=== PATIENT | male | born 1965 | race Caucasian/White ===

== ENCOUNTER 2020-08-19 10:33 | Inpatient (IN) | payer OTHER ==
[~2020-08-19] VITALS: Ht 177.8 cm; Wt 103.5 kg
[2020-08-19] VITALS (39 sets, daily range): BP systolic 75–232; BP diastolic 49–151
--- NOTE | ~2020-08-19 | CON ---
[address] [address] CONSULTATION Name: BENSONALFRED O Room: [address] IN M.R.#: [id number] Admission: 08/19/20 Attend Phys: Henrik Flores Discharge: Date of : 65 Report #: [id number] THIS REPORT FOR: cc: DEEPA - No family physician/PCP FAM - No family physician/PCP ~ Kiki Rios MD DATE OF SERVICE: 08/24/2020 NEPHROLOGY CONSULTATION CONSULTING PHYSICIAN: Dr. Mcguire. REASON FOR NEPHROLOGY CONSULTATION: Acute kidney injury. REASON FOR ADMISSION: Cardiorespiratory arrest. HISTORY OF PRESENT ILLNESS: This is a 55-year-old male with history of hypertension, also history of excessive alcohol use as per the patient's history, was brought in by EMS after cardiac arrest. The patient was brought to the fire station by an acquaintance where he was found to be without a pulse. CPR was not started for 5 minutes. When EMS arrived, the patient was found to be in VFib initially, he was resuscitated successfully after 4 shocks, amiodarone and epinephrine. EKG showed STEMI. 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 His RCA was found to be chronically occluded. His ejection fraction was found to be 25-30% with diastolic dysfunction, he was placed on code ICE protocol, eventually he was extubated. His creatinine was 1.9 when he came in and he states he does not follow with doctors regularly, so he does not know of any kidney problems from the past, though. His creatinine went up to 2.2 on 08/21 that eventually went up to 2.7, he was also hypotensive during that time, but then has started creatinine started coming down and it was 1.9 and then 1.8 and today it is 1.5. His blood pressures have been running slightly towards the higher side. Although he is awake, alert and oriented, he seems to be flushed and seems to be mentally a little off, seems to be a little getting confused at times. Alcohol withdrawal cannot be ruled out. He also states that he takes NSAIDs at home, but could not tell me how much. His blood pressure medications Include lisinopril and hydrochlorothiazide. He also takes potassium at home. He also had elevated AST and ALT, which are improving and they were presumed to be high because of shock liver. His urine output has been great. He had about 1100 mL of urine output in the last 24 hours. He has been eating and drinking well. ALLERGIES: [place] [address] CONSULTATION Name: ALFRED BENSON Room: [address] IN M.R.#: [id number] Admission: 08/19/20 Attend Phys: Henrik Flores Discharge: Date of : 65 Report #: [id number] REVIEW OF SYSTEMS: As mentioned in history of present illness. Detailed review of systems was kind of limited from patient. PAST MEDICAL AND SURGICAL HISTORY: All we know is that he has hypertension, dyslipidemia. HOME MEDICATIONS: Include hydrochlorothiazide, lisinopril, potassium, Coreg. SOCIAL HISTORY: He reports that he drinks a lot of alcohol. He also smokes, could not me how much. Does not use any recreational drugs. He lives at home with his family. PHYSICAL EXAMINATION: VITAL SIGNS: Blood pressure is 176/91, pulse ox is 93%. He is on room air, respiratory rate is 18, pulse is 74, temperature 36.5. GENERAL: The patient is awake and alert and oriented. He seems to be flushed and he is able to answer questions, but he seems to talk about random things and gets confused at times. HEAD AND EYES: Atraumatic and normocephalic. Conjunctivae normal. EARS, NOSE, AND THROAT: Normal ears and nose. Mucous membranes are moist. NECK: There is no JVD. CHEST: Bilaterally clear to auscultation. No crackles or wheezing He does have some bibasilar crackles posteriorly. CARDIOVASCULAR: S1, S2 normal. No murmurs. ABDOMEN: Soft, nondistended, nontender. Bowel sounds are present. EXTREMITIES: Lower extremities, there is no lower extremity edema. NEUROLOGIC: Grossly intact. PSYCHIATRIC: Mood and affect seems to be normal. LABORATORY DATA: Hemoglobin is 13.6, platelet count is 193. Sodium is 143, potassium is 3.5, BUN is 22, creatinine is 1.5 which is down from 1.8 and other labs were reviewed. Imaging studies including renal ultrasound were reviewed. ASSESSMENT: 1. Acute kidney injury, the patient could be possibly having chronic kidney disease because of hypertension as well we do not have a baseline creatinine on him, but he did have ischemic acute tubular necrosis in the setting of cardiac arrest, also contrast-induced nephropathy, creatinine was 1.9 on admission, went up to 2.7, but now has improved to 1.5. He is nonoliguric. Renal ultrasound showed left kidney was smaller than right kidney, indicating he could be having some vascular disease. UA only showed trace protein and no blood. 2. Hypertension, also has a history of significant alcohol use, alcohol [address] [place] [address] CONSULTATION Name: ALFRED BENSON Room: [address] IN [facility]#: [id number] Admission: 08/19/20 Attend Phys: Henrik Flores Discharge: Date of : 65 Report #: [id number] withdrawal needs to be ruled out. We will defer to Internal Medicine. 3. The patient presented with cardiorespiratory arrest, status post code ICE protocol, status post 4 stents, 2 to LAD and 2 to circumflex, drug-eluting stents. He is on dual antiplatelet therapy and Cardiology is following. 4. Ischemic cardiomyopathy, ejection fraction of 25-30% with diastolic dysfunction. 5. Shock liver. Liver enzymes are improving. 6. Aspiration pneumonia. He is being treated with ceftriaxone as per primary team. 7. Mild confusion, alcohol withdrawal cannot be ruled out. We will defer to primary team. PLAN: 1. I would watch him carefully for alcohol withdrawal. We will defer to primary team in regards to that. 2. We would avoid all NSAIDs. He was taking NSAIDs at home, asked him to not do so. 3. I have started him on lisinopril 10 mg a day to help with his blood pressure, kidney function needs to be monitored tomorrow. 4. Please provide him with an incentive spirometer to prevent atelectasis. 5. Labs in the morning. 6. Also reviewed, he has a right upper extremity DVT. We will defer to primary team for management of that. 7. Try to avoid hypotension and avoid nephrotoxic agents. 7. Lisinopril should be held if systolic blood pressure goal is less than 110 or if he has any nausea, vomiting, or dehydration. Thank you for this consultation. We will follow with you. If kidney function is stable tomorrow, he should be able to go home from renal standpoint although Cardiology is planning for defibrillator. I will have to follow up with me in about 3 weeks after discharge. My information was given to the patient. Discussed with nursing and the patient. By: [id number] Rios MD /nt
--- NOTE | 2020-08-19 10:41 | NUR ---
PT TAKEN TO THE TRIPOLER.
[2020-08-19 10:51] LABS: HEMATOCRIT 51.7 % (42.0-52.0); HEMOGLOBIN 16.9 gm/dL (14.0-18.0); MCH 30.4 pg (26.0-34.0); MCHC 32.8 g/dL (28.0-37.0); MCV 92.8 fL (80.0-100.0); MPV 7.1 fl. (7.2-11.1); NUCLEATED RBCS 0 /100WBC; PLATELET COUNT* 182 thou/uL (150-400); RBC 5.57 mil/uL (4.50-6.00); RDW-CV 13.6 % (10.5-14.5); WBC 8.2 thou/uL (4.0-11.0)
[2020-08-19 11:01] LABS: CALCIUM 8.5 mg/dL (8.5-10.1); CREATININE 1.9 mg/dL (0.6-1.3)
[2020-08-19 11:05] LABS: APTT 32.7 Seconds (25.0-31.3); INR 1.1; PROTIME 11.4 Seconds (9.20-11.50)
[2020-08-19 11:07] LABS: POTASSIUM 2.5 mmol/L (3.5-5.1)
[2020-08-19 11:12] LABS: ALBUMIN 3.2 g/dL (3.4-5.0); MAGNESIUM 2.9 mg/dL (1.8-2.4); TOTAL BILIRUBIN 0.4 mg/dL (<0.1-1.0); TOTAL PROTEIN 6.7 g/dL (6.4-8.2)
[2020-08-19 11:41] LABS: ABSOLUTE BASOPHILS 0.2 thou/uL (0.0-0.2); ABSOLUTE EOSINOPHILS 0.1 thou/uL (0.0-0.7); ABSOLUTE LYMPHOCYTES 5.7 thou/uL (0.8-5.3); ABSOLUTE MONOCYTES 0.6 thou/uL (0.0-1.2); ABSOLUTE NEUTROPHILS 1.6 thou/uL (1.6-8.1); ATYPICAL LYMPHS 11 %; METAMYELOCYTES 1 %
[2020-08-19 11:42] LABS: PLATELET ESTIMATE ADEQUATE
[2020-08-19 13:43] LABS: HEMATOCRIT 52.4 % (42.0-52.0); HEMOGLOBIN 17.8 gm/dL (14.0-18.0); MCH 30.1 pg (26.0-34.0); MCHC 33.9 g/dL (28.0-37.0); MCV 88.8 fL (80.0-100.0); MPV 7.1 fl. (7.2-11.1); NUCLEATED RBCS 0 /100WBC; RDW-CV 13.4 % (10.5-14.5); WBC 21.7 thou/uL (4.0-11.0)
[2020-08-19 13:45] LABS: PLATELET COUNT* 308 thou/uL (150-400)
[2020-08-19 13:51] LABS: CALCIUM 7.7 mg/dL (8.5-10.1); CREATININE 1.9 mg/dL (0.6-1.3)
[2020-08-19 13:53] LABS: POTASSIUM 4.6 mmol/L (3.5-5.1)
[2020-08-19 14:05] LABS: MAGNESIUM 2.3 mg/dL (1.8-2.4); PHOSPHORUS* 5.6 mg/dL (2.5-4.9)
[2020-08-19 14:12] LABS: FIBRINOGEN 209 mg/dL (200-340); PROTIME 37.1 Seconds (9.20-11.50)
[2020-08-19 14:13] LABS: INR 3.8
[2020-08-19 14:16] LABS: ABSOLUTE LYMPHOCYTES 1.1 thou/uL (0.8-5.3); ABSOLUTE MONOCYTES 0.7 thou/uL (0.0-1.2); APTT 120.2 Seconds (25.0-31.3); ATYPICAL LYMPHS 3 %; PLATELET ESTIMATE ADEQUATE
--- NOTE | 2020-08-19 14:56 | NUR ---
RIGHT BASILIC VESSEL ACCESSED FOR 5 MAURITIAN TRIPLE LUMEN PICC. LINE PRE-TRIMMED TO 41CM AND ADVANCED TO THE ZERO MILLY WITH NO RESISTANCE MET. UPPER ARM CIRCUMFERENCE ABOVE INSERTION SITE= 14". SHERLOCK MAGNET AND 3CG CONFIRMATION OF TIP TERMINATION AT THE CAVOATRIAL JUNCTION APPRECIATED. GUIDEWIRE REMOVED, LINE FLUSHED AND INSERTION SITE DRESSED. REPORT GIVEN TO VINCE WANG.
--- NOTE | 2020-08-19 15:04 | EKG ---
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 : 1965 Requested By: Vinh Rosado Order Number: [id number] MD: Chano Coello Measurements Intervals [place] Rate: 86 P: 42 MA: 168 QRS: 4 QRSD: 97 T: -10 QT: 459 QTc: 549 Interpretive Statements Sinus rhythm Borderline low voltage, extremity leads Anteroseptal infarct, old Borderline ST depression, anterolateral leads Prolonged QT interval No previous ECG available for comparison Electronically Signed On 08-19-2020 15:04:41 [employer] by Chano Coello [email or web address] <ELECTRONICALLY SIGNED> By: Chano Coello MD, FAC 08/19/20 1504 1252 1252 Chano Coello MD, [facility] /EPI
[2020-08-19 15:07] LABS: BE -7.1 mmol/L (-2 to +3)
[2020-08-19 15:10] LABS: PCO2 59.9 mmHg (35.0-45.0); pH 7.192 (7.340-7.450)
--- NOTE | 2020-08-19 15:30 | 2DMMODE ---
[place] [address] 2 D/M-MODE ECHOCARDIOGRAM Name: MARCELINOLAFRED O Room: [address] IN [facility]#: [id number] Admission: 08/19/20 Attend Phys: Prabhjot Mcguire Discharge: Date of : 65 Date of Service: 08/19/20 1530 Report #: [id number] THIS REPORT FOR: cc: FAM - No family physician/PCP FAM - No family physician/PCP Chano Coello MD [facility] ~ APPROVED REPORT Study performed: 08/19/2020 14:31:18 EXAM: Comprehensive 2D, Doppler, and color-flow Echocardiogram Patient Location: In-Patient Room #: [facility] Status: routine BSA: 2.21 HR: 108 bpm BP: 143/113 mmHg Rhythm: NSR Other Information Study Quality: Good Indications Acute IL 2D Dimensions IVSd: 11.68 (7-11mm) LVOT Diam: 20.88 (18-24mm) LVDd: 57.08 mm PWd: 9.19 (7-11mm) Ascending Ao: 35.47 (22-36mm) LVDs: 53.60 (25-40mm) Aortic Root: 37.09 mm Volumes Left Atrial Volume (Systole) LA ESV Index: 32.30 mL/m2 Aortic Valve AoV Peak Adiel.: 1.19 m/s AO Peak Gr.: 5.64 mmHg LVOT Max P.04 mmHg AO Mean Gr.: 3.33 mmHg LVOT Mean P.97 mmHg LVOT Max V: 0.71 m/s AO V2 VTI: 16.82 cm LVOT Mean V: 0.45 m/s RICK (VTI): 2.27 cm2 LVOT V1 VTI: 11.17 [place] [address] 2 D/M-MODE ECHOCARDIOGRAM Name: ALFRED BENSON Room: [address] IN [facility]#: [id number] Admission: 08/19/20 Attend Phys: Prabhjot Mcguire Discharge: Date of : 65 Date of Service: 08/19/20 1530 Report #: [id number] Mitral Valve E/A Ratio: 0.82 MV Decel. Time: 210.56 ms MV E Max Adiel.: 0.59 m/s MV PHT: 61.06 ms MVA (PHT): 3.60 cm2 TDI E/Lateral E': 7.38 E/Medial E': 11.80 Medial E' Adiel.: 0.05 m/s Lateral E' Adiel.: 0.08 m/s Pulmonary Valve PV Peak Adiel.: 0.81 m/s PV Peak Gr.: 2.62 mmHg Tricuspid Valve RAP Estimate: 5.00 mmHg TR Peak Gr.: 20.94 mmHg RVSP: 26.00 mmHg PA Pressure: 26.00 mmHg Left Ventricle Left ventricle is at the upper limits of normal. There is global hypokinesis that appears more pronounced in the anteroseptal wall. There is normal left ventricular wall thickness. Left ventricular systolic function is severely decreased. LVEF is 25-30%. Transmitral Doppler flow pattern suggests impaired LV relaxation. Right Ventricle The right ventricle is normal size. The right ventricular systolic function is normal. Atria Left atrium is mildly dilated. The right atrium size is normal. Aortic Valve The aortic valve is normal in structure. Mild aortic regurgitation. There is no aortic valvular stenosis. Mitral Valve The mitral valve is normal in structure. Mild mitral regurgitation. No evidence of mitral valve stenosis. Tricuspid Valve The tricuspid valve is normal in structure. Trace tricuspid regurgitation. [place] [address] 2 D/M-MODE ECHOCARDIOGRAM Name: ALFRED BENSON Room: [address]#: [id number] Admission: 08/19/20 Attend Phys: Prabhjot Mcguire Discharge: Date of : 65 Date of Service: 08/19/20 1530 Report #: [id number] Pulmonic Valve The pulmonary valve is normal in structure. There is no pulmonic valvular regurgitation. Great Vessels The aortic root is normal in size. IVC is normal in size. Pericardium There is no pericardial effusion. <Conclusion> Left ventricle is at the upper limits of normal. There is normal left ventricular wall thickness. Left ventricular systolic function is severely decreased. LVEF is 25-30%. Transmitral Doppler flow pattern suggests impaired LV relaxation. There is global hypokinesis that appears more pronounced in the anteroseptal wall. Mild aortic regurgitation. Mild mitral regurgitation. Trace tricuspid regurgitation. No pulmonary hypertension. Left atrium is mildly dilated. <ELECTRONICALLY SIGNED> By: Chano Coello MD, FACC 08/19/20 1530 153 153 Chano Coello MD, FACC /INF
--- NOTE | 2020-08-19 15:37 | CARD ---
[address] [address] CARDIAC CATH REPORT Name: ALFRED BENSON Mitzy Room: [address] IN [facility]#: [id number] Admission: 08/19/20 Attend Phys: Henrik Flores Discharge: Date of : 65 Report #: [id number] THIS REPORT FOR: cc: FAM - No family physician/PCP FAM - No family physician/PCP ~ Peter Scott MD [facility] APPROVED REPORT Study performed: 08/19/2020 10:52:52 Patient Details Patient Status: ED Room #: The patient is a 55 year-old male Event Personnel Anam Miner RTR Monitor, Kim Vanegas RTR Scrub, Ira Pacheco RN RN, Chano Coello Nurse Transplant, Peter Scott Psychology Tech Procedures Performed Left Heart Cath w/or w/o Coronaries [id number] [facility] [address] w/wo Plasty Single CIRC [id number] [facility] w/wo Plasty Single LAD [id number] Hemostasis w/ Angioseal Indication STEMI , [id number] cardiac arrest Admission/Lab Medications/Medications given during procedure Midazolam (Versed) IV 2 mg, Lidocaine Subcut 20 ml, Heparin IV 5000 units, Potassium Chloride IV 40 mEq, Angiomax IV 14 ml, Angiomax IV 31.83 ml per hr Procedure Narrative The patient was brought emergently to the Cardiac Catheterization Laboratory and was prepped and draped in a sterile manner. The right femoral was infiltrated with 2% Lidocaine subcutaneous anesthesia. A Hamlin 6 FR sheath was inserted into the right femoral artery. Coronary angiography was performed using coronary diagnostic catheters. The right coronary system was accessed and visualized with a Diagnostic JR4 6Fr catheter. The left coronary system was accessed and visualized with a Diagnostic JL4 6Fr catheter. The left ventricle was accessed and visualized with a Diagnostic JR4 6Fr catheter. Left ventricular/Aortic Valve gradient assessed [place] [address] CARDIAC CATH REPORT Name: ALFRED BENSON Room: [address]#: [id number] Admission: 08/19/20 Attend Phys: Henrik Flores Discharge: Date of : 65 Report #: [id number] Closure device was deployed with a 6 Fr Angioseal. The patient tolerated the procedure well and there were no complications associated with the procedure. There was no hematoma. Intraoperative Conscious Sedation Sedation start time: 1053 Case end Time: 1201 Versed 10 mg Fluoro Time: 19.7 minutes Dose: DAP 332624 cGycm2 4332.53 mGy Contrast Type and Amount: Omnipaque 400 ml Diagnostic Cath Left Main 0% narrowing LAD 30% very proximal narrowing with 80% proximalmid LAD stenosis and focal 80% mid LAD narrowing followed by multiple areas of 50 to 70% apical LAD stenosis Circumflex Tandem 90% mid circumflex stenoses with aneurysmal dilatation of 2 segments of the mid circumflex Right Coronary 100% chronic total occlusion proximally with [id number] collaterals filling the distal right coronary well Left Ventriculography Left Ventriculography was not performed. Hemodynamics The aortic pressure is 149/95 mmHg with a mean of 92 mmHg. The left ventricular pressure is 146/16 mmHg with a mean of mmHg. The left ventricular end diastolic pressure is 36 mmHg. There was no gradient across the aortic valve upon pullback. PCI Technique Lesion Anticoagulation was achieved with Angiomax. 14mL Percutaneous coronary intervention was performed on the mid circumflex artery segment. The lesion stenosis prior to intervention was 90% with CALVIN 2 flow. A 6FR XB 3.5 100CM Guide Catheter was used to engage the Left ostium. A [employer] Flex 180cm Interventional Guidewire was used to cross the lesion. BALLOON DILATION A Balloon catheter Trek RX 2.5 X 12 was inserted and inflated up to 12.00atm for 14seconds. Additional Inflation: 14.00atm for 8seconds. Additional Inflation: 14.00atm [place] 10seconds. [place] [address] CARDIAC CATH REPORT Name: ALFRED BENSON Room: [address] IN [facility]#: [id number] Admission: 08/19/20 Attend Phys: Henrik Flores Discharge: Date of : 65 Report #: [id number] STENT DEPLOYMENT A drug-eluting stent Parrott RX Stent 3.0X8mm was inserted and inflated up to 12.00atm for 9seconds. Additional Inflation: 14.00atm for 7seconds. A Drug-Eluting Stent Daniel RX Stent 2.69B3zflzd inserted and inflated up to 20.00 ricardo for 10 seconds. Additional Inflation: 22.00 ricardo for 4 seconds. Final angiography reveals 10 % stenosis with CALVIN 3 flow. PCI Technique Lesion 2 Percutaneous Coronary Intervention was performed on the mid left anterior descending artery segment. The lesion stenosis prior to intervention was 80% with CALVIN 3 flow. A 6FR XB 3.5 100CM Guide Catheter was used to engage the Left ostium. A Prowater Flex 180cm Interventional Guidewire was used to cross the lesion. Balloon Dilation A Balloon catheter Trek RX 2.5 X 8 was inserted and inflated up to 14.00atm for 10seconds. Additional Inflation: 10.00atm for 9seconds. Stent Deployment A drug-eluting stent Daniel RX Stent 2.5X8mm was inserted and inflated up to 12.00atm for 5seconds. Additional Inflation: 15.00atm for 8seconds. Final angiography reveals 0 % stenosis with CALVIN flow. PCI Technique Lesion 3 Percutaneous Coronary Intervention was performed on the proximal left anterior descending artery segment. The lesion stenosis prior to intervention was 80% with CALVIN 3 flow. A 6FR XB 3.5 100CM Guide Catheter was used to engage the Left ostium. A Prowater Flex 180cm Interventional Guidewire was used to cross the lesion. Stent Deployment A drug-eluting stent Daniel RX Stent 2.69U54ua was inserted and inflated up to 14.00atm for 13seconds. Additional Inflation: 14.00atm for 11seconds. Post Stent Deployment Balloon Dilation A Balloon catheter NC Euphora 3.0 x 8 was inserted and inflated up to 18.00atm for 14seconds. Additional Inflation: 24.00atm for 14seconds. [place] [address] CARDIAC CATH REPORT Name: ALFRED BENSON Room: [address] IN [place]#: [id number] Admission: 08/19/20 Attend Phys: Henrik Flores Discharge: Date of : 65 Report #: [id number] Final angiography reveals 10 % stenosis with CALVIN [address] 1[address] Acute ST segment elevation myocardial infarction 2. Severe multivessel coronary artery disease characterized by the following: A 100% chronic total occlusion of the proximal right coronary artery with jnyh-za-qirly collaterals filling the distal right coronary artery B 30% very proximal LAD stenosis followed by 80% proximalmid LAD stenosis with local thrombus at the site followed by 80% mid LAD stenosis with multiple areas of 50 to 70% apical LAD narrowing C tandem 90% stenosis of the midportion of the nondominant circumflex with 2 areas of aneurysmal dilatation in the mid circumflex with CALVIN II flow to the distal vessel 3. Severe elevation of left ventricular end diastolic pressure at rest 4. Successful PCI with deployment of sequential drug-eluting stents at the sites of tandem 90% mid circumflex stenosis with 10% residual narrowings and CALVIN-3 flow to the distal vessel 5. Successful PCI with deployment of sequential drug-eluting stents at the sites of 80% proximalmid LAD stenosis and 80% mid LAD stenosis with 10 and 0% residual narrowings and CALVIN-3 flow to the distal vessel Recommendations Cardiac Risk Reduction Program Medications Administered Angiomax was [place] [address] CARDIAC CATH REPORT Name: ALFRED BENSON Room: [address] IN [facility].#: [id number] Admission: 08/19/20 Attend Phys: Henrik Flores Discharge: Date of : 65 Report #: [id number] Diagnostic Cath Approved by: Chano Coello MD Date/Time: 08/19/2020 15:29:13 <ELECTRONICALLY SIGNED> By: Peter Scott MD, FACC 08/19/20 1536 1536 1536Joandree Scott MD, FACC /INF
[2020-08-19 17:05] LABS: BE -5.6 mmol/L (-2 to +3); PCO2 41.8 mmHg (35.0-45.0); pH 7.307 (7.340-7.450)
[2020-08-19 17:08] LABS: PO2 175.3 mmHg (75.0-100.0)
[2020-08-19] MEDS ORDERED: HYDROCHLOROTHIA25 M1 PO (18:07)
[2020-08-19 19:55] LABS: ABSOLUTE BASOPHILS 0.1 thou/uL (0.0-0.2); ABSOLUTE LYMPHOCYTES 1.5 thou/uL (0.8-5.3); ABSOLUTE MONOCYTES 1.4 thou/uL (0.0-1.2); ABSOLUTE NEUTROPHILS 18.5 thou/uL (1.6-8.1); BASOPHILS 0.3 %; EOSINOPHILS 0.2 %; HEMATOCRIT 51.9 % (42.0-52.0); LYMPHOCYTES 7.1 %; MCH 30.2 pg (26.0-34.0); MCHC 34.7 g/dL (28.0-37.0); MCV 86.8 fL (80.0-100.0); MONOCYTES 6.5 %; MPV 6.8 fl. (7.2-11.1); NUCLEATED RBCS 0 /100WBC; PLATELET COUNT* 297 thou/uL (150-400); POLYS 85.9 %; RBC 5.98 mil/uL (4.50-6.00); RDW-CV 13.7 % (10.5-14.5); WBC 21.5 thou/uL (4.0-11.0)
[2020-08-19 20:08] LABS: PROTIME 21.2 Seconds (9.20-11.50)
[2020-08-19 20:10] LABS: APTT 66.5 Seconds (25.0-31.3); INR 2.1
[2020-08-19 20:25] LABS: CALCIUM 8.7 mg/dL (8.5-10.1); CREATININE 1.9 mg/dL (0.6-1.3); POTASSIUM 3.4 mmol/L (3.5-5.1)
[2020-08-20] VITALS (102 sets, daily range): BP systolic 72–142; BP diastolic 40–87
[2020-08-20 00:21] LABS: ABSOLUTE LYMPHOCYTES 1.2 thou/uL (0.8-5.3); ABSOLUTE NEUTROPHILS 12.8 thou/uL (1.6-8.1); BASOPHILS 0.3 %; EOSINOPHILS 0.2 %; HEMOGLOBIN 16.7 gm/dL (14.0-18.0); LYMPHOCYTES 7.8 %; MCH 29.9 pg (26.0-34.0); MCHC 34.8 g/dL (28.0-37.0); MCV 86.1 fL (80.0-100.0); MONOCYTES 6.8 %; MPV 6.8 fl. (7.2-11.1); NUCLEATED RBCS 0 /100WBC; PLATELET COUNT* 238 thou/uL (150-400); POLYS 84.9 %; RBC 5.58 mil/uL (4.50-6.00); RDW-CV 13.8 % (10.5-14.5); WBC 15.1 thou/uL (4.0-11.0)
[2020-08-20 00:49] LABS: INR 1.1; PROTIME 12.1 Seconds (9.20-11.50)
[2020-08-20 00:50] LABS: CALCIUM 8.9 mg/dL (8.5-10.1); CREATININE 1.8 mg/dL (0.6-1.3); MAGNESIUM 2.6 mg/dL (1.8-2.4); PHOSPHORUS* 2.6 mg/dL (2.5-4.9); POTASSIUM 3.6 mmol/L (3.5-5.1)
[2020-08-20 00:52] LABS: APTT 37.6 Seconds (25.0-31.3)
--- NOTE | 2020-08-20 01:42 | NUR ---
PATIENT'S HEART RATE DECREASED TO MID-LOW 40'S, QT INTERVAL PROLONGED AT 640 MS, BP SOFT WITH MAP >65. PAGED DR. GARBER FOR STATUS UPDATE, NO ADDITIONAL ORDERS RECIEVED.
--- NOTE | 2020-08-20 02:58 | NUR ---
BLOOD PRESSURE FURTHER DECREASED. SYSTOLIC BP IN 70'S WITH MAP IN 50'S. DOPAMINE STARTED, PATIENT RESPONDING WELL TO TREATMENT
[2020-08-20] MEDS ORDERED: AMLODIPINE BESY10 MG PO (05:10)
[2020-08-20] MEDS ORDERED: KLOR-CON 1010 MEQ PO (05:12)
[2020-08-20] MEDS ORDERED: LISINOPRIL20 MG PO (05:14)
[2020-08-20] MEDS ORDERED: COREG PO (05:15)
[2020-08-20 05:22] LABS: BE -4.3 mmol/L (-2 to +3); PCO2 33.1 mmHg (35.0-45.0); PO2 82.4 mmHg (75.0-100.0); pH 7.389 (7.340-7.450)
[2020-08-20 05:36] LABS: ABSOLUTE BASOPHILS 0.1 thou/uL (0.0-0.2); ABSOLUTE LYMPHOCYTES 1.1 thou/uL (0.8-5.3); ABSOLUTE MONOCYTES 0.8 thou/uL (0.0-1.2); ABSOLUTE NEUTROPHILS 11.7 thou/uL (1.6-8.1); BASOPHILS 0.4 %; EOSINOPHILS 0.1 %; HEMATOCRIT 47.2 % (42.0-52.0); HEMOGLOBIN 16.5 gm/dL (14.0-18.0); LYMPHOCYTES 7.8 %; MCH 29.9 pg (26.0-34.0); MCHC 34.9 g/dL (28.0-37.0); MCV 85.8 fL (80.0-100.0); MONOCYTES 5.6 %; MPV 6.9 fl. (7.2-11.1); NUCLEATED RBCS 0 /100WBC; PLATELET COUNT* 232 thou/uL (150-400); POLYS 86.1 %; RDW-CV 13.9 % (10.5-14.5); WBC 13.6 thou/uL (4.0-11.0)
[2020-08-20 05:48] LABS: APTT 29.5 Seconds (25.0-31.3); INR 1.1; PROTIME 11.2 Seconds (9.20-11.50)
[2020-08-20 05:59] LABS: ALKALINE PHOSPHATASE 74 U/L (46-116); ANION GAP 15 mmol/L (7-16); BUN 23 mg/dL (7-18); CALCIUM 8.2 mg/dL (8.5-10.1); CHLORIDE 105 mmol/L (98-107); CHOLESTEROL 222 mg/dL (<200); CO2 22 mmol/L (21-32); CREATININE 1.7 mg/dL (0.6-1.3); GLUCOSE 210 mg/dL (70-99); HDL CHOLESTEROL 37 mg/dL (>40); LDL CHOLESTEROL 117 mg/dL (<100); POTASSIUM 3.5 mmol/L (3.5-5.1); SGOT 168 U/L (15-37); SGPT 208 U/L (30-65); SODIUM 142 mmol/L (136-145); TOTAL BILIRUBIN 0.5 mg/dL (<0.1-1.0); TOTAL PROTEIN 6.1 g/dL (6.4-8.2); TRIGLYCERIDE 344 mg/dL (<150); VLDL 69 mg/dL (<40)
[2020-08-20 06:04] LABS: SERUM ASSESSMENT CLEAR; TROPONIN-I LEVEL 5.11 ng/mL (<0.06)
[2020-08-20 06:05] LABS: MAGNESIUM 2.4 mg/dL (1.8-2.4)
--- NOTE | 2020-08-20 07:49 | NUR ---
ASSESSMENTS CHARTED. PATIENT REMAINED COOLED WITHIN TARGETED TEMPERATURE RANGE THROUGHOUT THE SHIFT. PATIENT SCHEDULED TO BEGIN REWARMING AT 1720 TODAY. PATIENT DOES WAKE UP OVER SEDATION AND BECOMES AGIATED. PROPOFOL NEEDED TO BE INCREASED TO 40 MCG/KG/MIN. SEE TITRATION RECORD FOR DETAILS. DOPAMINE STARTED FOR HR AND BP SUPPORT. CARDENE TURNED OFF AT START OF SHIFT. FAMILY UPDATED MULTIPLE TIMES OVERNIGHT.
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
--- NOTE | 2020-08-20 12:41 | EKG ---
[place] [address] ELECTROCARDIOGRAM REPORT Name: ALFRED BENSON Room: [address] ADM IN M.R.#: [id number] Admission: 08/19/20 Attend Phys: Prabhjot Mcguire Discharge: Date of : 65 Date of Service: 08/20/20 0319 Report #: [id number] THIS REPORT FOR: //name// [facility] Test Date: 2020-08-20 Test Time: 03:19:54 Pat Name: ALFRED BENSON Department: Room: [address] Gender: M Electrical Tester: ITA : 1965 Requested By: Chano Coello Order Number: [id number] Travon MD: Peter Scott Measurements Intervals [place] Rate: 60 P: 14 KS: 120 QRS: 1 QRSD: 92 T: -5 QT: 582 QTc: 582 Interpretive Statements Sinus rhythm Probable left atrial enlargement Probable left ventricular hypertrophy Anterior Q waves, possibly due to LVH Inferior ST-T abnormality; consider ischemia Prolonged QT interval Compared to ECG 08/19/2020 12:52:36 Left ventricular hypertrophy now present Q waves now present T-wave abnormalities persist QT interval has prolonged Electronically Signed On 08-20-2020 12:41:45 CHARTER COORDINATOR by Peter Scott [email or web address] <ELECTRONICALLY SIGNED> By: Peter Scott MD, [facility] 08/20/20 1241 8 8 Peter Scott MD, [facility] /EPI
[2020-08-20 15:39] LABS: HEMATOCRIT 44.3 % (42.0-52.0); HEMOGLOBIN 15.9 gm/dL (14.0-18.0); MCH 30.8 pg (26.0-34.0); MCHC 35.8 g/dL (28.0-37.0); MCV 86.1 fL (80.0-100.0); MPV 7.2 fl. (7.2-11.1); RBC 5.14 mil/uL (4.50-6.00); RDW-CV 13.7 % (10.5-14.5); WBC 12.7 thou/uL (4.0-11.0)
[2020-08-20 16:13] LABS: CALCIUM 7.2 mg/dL (8.5-10.1); MAGNESIUM 2.2 mg/dL (1.8-2.4); PHOSPHORUS* 1.7 mg/dL (2.5-4.9)
[2020-08-20 16:17] LABS: CALCIUM 7.9 mg/dL (8.5-10.1); CREATININE 1.6 mg/dL (0.6-1.3)
[2020-08-20 18:41] LABS: FIBRINOGEN 139 mg/dL (200-340); INR 1.5; PROTIME 15.3 Seconds (9.20-11.50)
--- NOTE | 2020-08-20 18:50 | NUR ---
PATIENT COOLED THROUGHOUT THIS SHIFT, STARTED REWARMING PROCESS 1720. PATIENT OPENED EYES WHEN REPOSITIONED AT TIMES, BUT REMAINED CALM. DOPAMINE TRITRATED PER PROTOCOL, AND CURRENTLY AT 5. WAS HERE MOST OF SHIFT, DAUGHTER (APARNA) VISITED.
[2020-08-21] VITALS (93 sets, daily range): BP systolic 60–135; BP diastolic 34–90
--- NOTE | 2020-08-21 02:13 | NUR ---
PATIENT REACHED 36.0 DEGREES THEN STARTED DROPPING TEMPERATURE. DOWN TO 35.4 OVER THE LAST 90 MINUTES. BATSHEVA HUGGER APPLIED. TARGET REWARMING TEMPERATURE STILL NOT ACHEIVED. DOPAMINE INCRASED TO 10 MCG/KG/MIN
[2020-08-21 02:16] LABS: CALCIUM 8.3 mg/dL (8.5-10.1); CREATININE 2.2 mg/dL (0.6-1.3); POTASSIUM 3.4 mmol/L (3.5-5.1)
[2020-08-21 03:57] LABS: BE -1.8 mmol/L (-2 to +3); PCO2 29.6 mmHg (35.0-45.0); pH 7.462 (7.340-7.450)
--- NOTE | 2020-08-21 04:09 | NUR ---
PATIENT REWARMED TO TARGET TEMPERATURE OF 37 DEGREES CELSIUS AT 0408.
[2020-08-21 04:51] LABS: HEMATOCRIT 43.2 % (42.0-52.0); HEMOGLOBIN 14.9 gm/dL (14.0-18.0); MCH 29.4 pg (26.0-34.0); MCHC 34.5 g/dL (28.0-37.0); MCV 85.3 fL (80.0-100.0); RBC 5.07 mil/uL (4.50-6.00); RDW-CV 13.6 % (10.5-14.5)
[2020-08-21 05:04] LABS: CALCIUM 8.2 mg/dL (8.5-10.1); CREATININE 2.5 mg/dL (0.6-1.3); POTASSIUM 3.6 mmol/L (3.5-5.1)
[2020-08-21 05:11] LABS: TROPONIN-I LEVEL 3.31 ng/mL (<0.06)
--- NOTE | 2020-08-21 07:54 | NUR ---
ASSESSMENTS CHARTED. TITRATING DOWN SEDATION, PATIENT DID NOT TOLERATE LOWER DOSES. PATIENT BECAME AGITAED AND BEGAN THRASHING ON THE VENT. HR INCREASED OVER 120 AND SUSTAINED. WILL NOT FOLLOW COMMANDS. PATIENT DID EXPERIENCE A SEZIURE EARLY ON IN THE SHIFT, MEDICATION ORDERS RECIEVED. PATIENT DID NOT HAVE ANY OTHER SEIZURES THROUGHOUT THE SHIFT. FAMILY UPDATED OVER THE PHONE MULTIPLE TIMES OVERNIGHT.
[2020-08-21 08:43] LABS: BE -5.3 mmol/L (-2 to +3); PCO2 42.5 mmHg (35.0-45.0); PO2 84.6 mmHg (75.0-100.0); pH 7.308 (7.340-7.450)
--- NOTE | 2020-08-21 09:08 | NUR ---
PT PASSED HIS WEANING TRIAL, OKAY TO EXTUBATE PER DR GARBER. EXTUBATED AT 0848, O2 SUPPORT WITH NC 5L/MIN. VSS. PT ANSWERING TO YES OR NO QUESTIONS. REORIENTATION PROVIDED. UPDATED AND WITH THE PATIENT CURRENTLY.
[2020-08-21 17:27] LABS: HEMATOCRIT 40.6 % (42.0-52.0); HEMOGLOBIN 13.9 gm/dL (14.0-18.0); MCH 29.8 pg (26.0-34.0); MCHC 34.3 g/dL (28.0-37.0); MCV 86.8 fL (80.0-100.0); RBC 4.68 mil/uL (4.50-6.00); RDW-CV 13.7 % (10.5-14.5); WBC 13.5 thou/uL (4.0-11.0)
[2020-08-21 17:45] LABS: INR 1.1; PROTIME 11.4 Seconds (9.20-11.50)
[2020-08-21 17:50] LABS: CALCIUM 8.1 mg/dL (8.5-10.1); CREATININE 2.8 mg/dL (0.6-1.3); MAGNESIUM 2.1 mg/dL (1.8-2.4); PHOSPHORUS* 6.5 mg/dL (2.5-4.9); POTASSIUM 3.8 mmol/L (3.5-5.1)
--- NOTE | 2020-08-21 19:23 | NUR ---
Pt did well after exubation at 0848. Was able to titrate off dopamine by end of shift. All interventions completed.
[2020-08-22] VITALS (12 sets, daily range): BP systolic 125–139; BP diastolic 76–92
--- NOTE | 2020-08-22 04:38 | NUR ---
ASSUMED CARE AT 1910H, ON NC AT 2LPM AND TOLERATED. PT WAS FORGETFUL. NO DISTRESS IN MY SHIFT. NO FEVER. PT SLEPT MOST OF THE TIME. CONTINUE MONITORING AND TOWARDS GOALS.
[2020-08-22 04:45] LABS: HEMATOCRIT 38.4 % (42.0-52.0); HEMOGLOBIN 13.5 gm/dL (14.0-18.0); MCH 30.4 pg (26.0-34.0); MCHC 35.1 g/dL (28.0-37.0); MCV 86.6 fL (80.0-100.0); RBC 4.44 mil/uL (4.50-6.00)
[2020-08-22 04:57] LABS: CALCIUM 8.3 mg/dL (8.5-10.1); CREATININE 2.7 mg/dL (0.6-1.3); POTASSIUM 3.6 mmol/L (3.5-5.1)
--- NOTE | 2020-08-22 17:07 | NUR ---
PT A&O BUT FORGETFUL, KEEPS QUESTIONING "WHY AM I HERE", FREQUENT REORIENTATION GIVEN. IN THE ROOM ALMOST ALL DAY LONG. VSS. O2 SUPPORT VIA NC 2L/MIN. PT OUT OF BED STB ASSIST, MINIMAL SUPPORT. HE FEELS VERY WEAK. HYDROCODONE GIVEN ONCE FOR GENERALISED BODY ACHE, PAIN PARTIALLY RELIEVED. ENCOURAGED DIET. BM x2 THIS SHIFT, LOOSE. TELE STATUS.
--- NOTE | 2020-08-22 23:43 | NUR ---
RECEIVED REPORT FROM ICU, PT TRANSFERRED TO ROOM 214 PER BED. FAMILY CALLED AND WAS INFORMED OF TRANSFER AND WOULD RETURN CALL ONCE IN ROOM, SETTLED IN AND RE-EVALUATED. PT AMBULATED TO , VOIDING WITHOUT DIFFICULTY. STANDING AT SINK TO BRUSH HIS TEETH, IN BED THEN FOR ASSESSMENT. TELEMETRY ON SHOWING SR. DURING THIS TIME FAMILY CALLED AGAIN. ONCE CARE WAS COMPLETED CALLED NIMO WHO DID NOT ANSWER THE PHONE, MESSAGE LEFT. PT GIVEN COFFEE AND BED ALARM ON. THEN RETURNED CALL. UPDATE GIVEN. INFORMED PT AND ALSO TO INFORM DGT THAT WE WOULD NOT BE ABLE TO HAVE FREQ CALLS CONCERNING PT, ESPECIALLY DURING REPORT TIMES. ALSO INFORMED OF PT ADVOCATE FRED IS THERE IF CONCERNS ABOUT THIS. INFORM OF VISITING HOURS 9-5 WITH ONLY 1 PERSON DAILY, SHE STATED BECAUSE OF LEARNING DISABLITY, SHE NEEDED A SECOND PERSON IN THE ROOM. I REASSURED THAT HE WOULD GET EXCELLENT CARE HERE AND SHE THANKED US FOR THAT. AGAIN GAVE HER THE PHONE NUMBER TO THE UNIT.
--- NOTE | 2020-08-23 00:23 | NUR ---
ASSUMED PATIENT CARE AT 1900. ASSESSMENT COMPLETED CHARTED. CARDIAC MONITORING IN PLACE. PATIENT REPORT GIVEN TO KATHLEEN SHAIKH AT 2250. PATIENT TRANSFERRED TO TELE UNIT WITH ALL BELONGINS.
[2020-08-23 04:12] VITALS: BP 147/87
--- NOTE | 2020-08-23 07:05 | NUR ---
PT ONLY SLEPT SHORT PERIODS OF TIME. AMBULATED IN HALLWAY WITH ASSIST. REMAINS ORIENTED TO PERSON ONLY. RT ARM REMAINS RED, WARM AND 4+ EDEMA, FINGERS WHITE AT KNUCKLES. BRISK CAPILLARY REFILL. BACK REMAINS RED WITH RASH. DR QUINONES NOTIFIED WITH ORDERS RECEIVED. HELD PIPERCILLIN. REMAINS UP IN CHAIR AND SLEEPING. SPOKE WITH DR MUSA ON PHONE.
[2020-08-23 08:00] VITALS: BP 173/119
[2020-08-23 12:00] VITALS: BP 155/84
[2020-08-23 12:53] LABS: CREATININE 1.9 mg/dL (0.6-1.3); POTASSIUM 3.6 mmol/L (3.5-5.1)
[2020-08-23 13:30] LABS: URINE BILIRUBIN NEGATIVE (Negative); URINE BLOOD 1+ (Negative); URINE CLARITY CLEAR; URINE COLOR YELLOW; URINE GLUCOSE-RANDOM TRACE (Negative); URINE KETONES NEGATIVE (Negative); URINE LEUKOCYTES NEGATIVE (Negative); URINE NITRITE NEGATIVE (Negative); URINE PROTEIN TRACE (Negative); URINE SPECIFIC GRAVITY 1.015 (1.005-1.030); URINE UROBILINOGEN 0.2 E.U./dl (0.2-1.0)
[2020-08-23 13:40] LABS: CASTS None Seen /LPF (None Seen); CRYSTALS None Seen /LPF (None Seen); MUCUS None Seen strn/LPF (None Seen); SQUAMOUS 0-3 Few /LPF (0-3); URINE RBC 0-2 Rare /HPF (0-2); URINE WBC None Seen /HPF (0-5)
--- NOTE | 2020-08-23 14:19 | NUR ---
Pt up from ICU. Doing better, up adlib. Nephro consulted. Anticipate dc to home in a few days. in room and in agreement with POC.
[2020-08-23 15:12] VITALS: BP 155/84
[2020-08-23 18:42] VITALS: BP 166/98
[2020-08-23 19:47] LABS: ALBUMIN 2.6 g/dL (3.4-5.0); CALCIUM 8.8 mg/dL (8.5-10.1); CREATININE 1.8 mg/dL (0.6-1.3); MAGNESIUM 2.1 mg/dL (1.8-2.4); PHOSPHORUS* 2.7 mg/dL (2.5-4.9); POTASSIUM 3.6 mmol/L (3.5-5.1); TOTAL BILIRUBIN 0.4 mg/dL (<0.1-1.0); TOTAL PROTEIN 6.5 g/dL (6.4-8.2)
[2020-08-23 20:00] VITALS: BP 147/89
--- NOTE | 2020-08-23 20:00 | NUR ---
RECEIVED REPORT AND ASSUMED CARE OF PT, ASSESSMENT COMPLETED. PT RESTING WITH EYES CLOSED, ATIVAN IV GIVEN EARLIER. RT ARM 4+ EDEMA AND TIGHT. ELEVATED ON PILLOWS. BRISK CAP REFILL, FINGERS DISCOLORED. TELEMETRY ON SHOWING SR. WILL CONT TO MONITOR AND ASSIST NEEDED.
--- NOTE | 2020-08-23 20:16 | NUR ---
I ASSUMED CARE OF THE PATIENT AT 0700. HE IS ALERT TO SELF AND LOCATION, BUT SEEMS CONFUSED. BED IS IN THE LOW LOCKED POSITION AND CALL LIGHT IS IN REACH. HOURLY ROUNDING IS COMPLETED AND PATIENT NEEDS ARE MET. PAIN IS DENIED. BLOOD GLUCOSE IS MANAGED WITH INSULIN AND MONITORED. IS AT THE BEDSIDE AND DAUGHTER CALLS FREQUENTLY. NEW ORDERS ARE OBTAINED AND RESULTS ARE CALLED TO THE PHYSICIAN. DVT IS CALLED TO THE HIMS. ARM IS ELEVATED. DAUGHTER WAS UPDATE AT THE REQUEST OF THE PATIENT AND HIS . PICC IS D/C'D AND NEW PERIPHERAL IS PLACED. WILL CONTINUE TO MONITOR.
[2020-08-23 21:17] LABS: ABSOLUTE EOSINOPHILS 0.4 thou/uL (0.0-0.7); ABSOLUTE LYMPHOCYTES 0.9 thou/uL (0.8-5.3); ABSOLUTE MONOCYTES 0.6 thou/uL (0.0-1.2); ABSOLUTE NEUTROPHILS 5.9 thou/uL (1.6-8.1); BASOPHILS 0.5 %; EOSINOPHILS 5.4 %; HEMATOCRIT 39.4 % (42.0-52.0); HEMOGLOBIN 13.4 gm/dL (14.0-18.0); LYMPHOCYTES 11.6 %; MCH 29.8 pg (26.0-34.0); MCHC 33.9 g/dL (28.0-37.0); MCV 87.9 fL (80.0-100.0); MONOCYTES 8.1 %; MPV 7.6 fl. (7.2-11.1); NUCLEATED RBCS 0 /100WBC; PLATELET COUNT* 183 thou/uL (150-400); POLYS 74.4 %; RBC 4.48 mil/uL (4.50-6.00); RDW-CV 13.7 % (10.5-14.5); WBC 7.9 thou/uL (4.0-11.0)
[2020-08-24] VITALS (7 sets, daily range): BP systolic 155–176; BP diastolic 91–97
--- NOTE | 2020-08-24 02:09 | NUR ---
PT BECOMING RESTLESS. AMBULATED IN HALLWAY, GAIT UNSTEADY AT TIMES. SNACK GIVEN. STATES HE HAS HIS DAYS AND NIGHTS MIXED UP. IV ATIVAN GIVEN AND PT RESTING QUIETLY.
[2020-08-24 04:56] LABS: HEMATOCRIT 39.3 % (42.0-52.0); HEMOGLOBIN 13.6 gm/dL (14.0-18.0); MCH 29.9 pg (26.0-34.0); MCHC 34.6 g/dL (28.0-37.0); MCV 86.3 fL (80.0-100.0); MPV 6.5 fl. (7.2-11.1); RBC 4.55 mil/uL (4.50-6.00); RDW-CV 13.5 % (10.5-14.5); WBC 7.4 thou/uL (4.0-11.0)
[2020-08-24 05:18] LABS: ALBUMIN 2.5 g/dL (3.4-5.0); CALCIUM 9.1 mg/dL (8.5-10.1); CREATININE 1.5 mg/dL (0.6-1.3); MAGNESIUM 2.2 mg/dL (1.8-2.4); POTASSIUM 3.5 mmol/L (3.5-5.1); TOTAL BILIRUBIN 0.5 mg/dL (<0.1-1.0); TOTAL PROTEIN 6.2 g/dL (6.4-8.2)
[2020-08-24 05:19] LABS: TROPONIN-I LEVEL 0.71 ng/mL (<0.06)
--- NOTE | 2020-08-24 06:30 | NUR ---
RT ARM REMAINS EDEMATOUS, ELEVATED ON PILLOW. PT IMPULSIVE WITH DIFFICULTY REDIRECTING. IV ATIVAN GIVEN AND EFFECTIVE, SLEPT FOR SHORT TIME AFTER RECEIVED. NO CHANGE IN ASSESSMENT. TELEMETRY CONT TO SHOW SR. AMBULATED WITH PT IN HALLWAY. HS GOALS OF SAFETY ACHIEVED. HOURLY ROUNDING OBSERVED.
--- NOTE | 2020-08-24 11:26 | NUR ---
Received call from 2nd floor bilingual secretary regarding an IR consult on this patient. Just spoke with Dr. Eldridge who will look at any studies previously performed and let us know if any further intervention can be done.
--- NOTE | 2020-08-24 11:56 | NUR ---
Nephro following. IR consulted for swollen arm. Anticipate dc tomorrow. No needs anticipated.
--- NOTE | 2020-08-24 12:55 | CON ---
[address] [address] CONSULTATION Name: ALFRED BENSON Room: [address] IN .R.#: [id number] Admission: 08/19/20 Attend Phys: Henrik Flores Discharge: Date of : 65 Report #: [id number] THIS REPORT FOR: cc: FAM - No family physician/PCP FAM - No family physician/PCP ~ Chano Coello MD [facility] INDICATION: Acute ST-elevation myocardial infarction. HISTORY OF PRESENT ILLNESS: The patient is a 55-year-old gentleman who was brought by acquaintances to the local fire station in cardiac arrest. The patient was pulled out of the car, CPR promptly started. An initial rhythm was VFib. The patient was shocked 4 times. Eventually after 2 rounds of epinephrine and 300 mg of amiodarone, sinus rhythm was restored. The patient had a return of spontaneous circulation. The patient was brought to the Emergency Room. Upon arrival, the patient is white male, average built, mottled in appearance, being assisted with breathing. The patient was intubated in the Emergency Room. No history of physical illness available due to the patient's unconscious state. PAST MEDICAL HISTORY: Unknown. PAST SURGICAL HISTORY: Unknown. MEDICATIONS: Unknown. ALLERGIES: Unknown. REVIEW OF SYSTEMS: Unobtainable. PHYSICAL EXAMINATION: VITAL SIGNS: Presently, his pulse is in the 70s and regular, blood pressure 144/80. GENERAL: This is a mottled gentleman. HEENT: Head is normocephalic, atraumatic. Extraocular muscles are not assessable. NECK: Appears without obvious JVD. CHEST: Clear anteriorly. CARDIOVASCULAR: Regular rhythm. I do not appreciate obvious gallop or murmur. ABDOMEN: Soft. EXTREMITIES: Without edema. SKIN: Cool to touch, but dry. IMPRESSION AND RECOMMENDATIONS: 1. Acute ST-elevation myocardial infarction. Proceed to catheterization lab for [place] [address] CONSULTATION Name: ALFRED BENSON Room: [address] IN [facility]#: [id number] Admission: 08/19/20 Attend Phys: Henrik Flores Discharge: Date of : 65 Report #: [id number] 2. Out of hospital arrest, likely due to acute coronary syndrome. The patient has received 300 mg of amiodarone and remains in sinus rhythm at this time. 3. Respiratory failure due to acute cardiac arrest. The patient has been intubated and will be placed on ventilator for ventilatory support. <ELECTRONICALLY SIGNED> By: Chano Coello MD, [facility] 08/24/20 1255 1049 1240Micbridget Coello MD, FACC /nt
--- NOTE | 2020-08-24 14:11 | NUR ---
PT REFUSING TO FOLLOW FALL RISK PRECAUTIONS. PT REFUSING BED ALARM AND STAND BY ASSISTANCE TO USE RESTROOM.
--- NOTE | 2020-08-24 18:10 | NUR ---
PT MORE COMPLIANT THROUGHOUT THE REST OF THE SHIFT. PT STILL DOES NOT USE CALL LIGHT AND REFUSES THE BED ALARM. PT IS DETERMINED TO GO HOME SOON. PT GETS AGITATED WHEN FAMILY IS IN ROOM. NO ATIVAN NEEDED THIS SHIFT.
[2020-08-25 05:13] LABS: CALCIUM 8.7 mg/dL (8.5-10.1); CREATININE 1.4 mg/dL (0.6-1.3); POTASSIUM 3.3 mmol/L (3.5-5.1)
[2020-08-25 05:20] LABS: ALBUMIN 2.6 g/dL (3.4-5.0); DIRECT BILIRUBIN 0.1 mg/dL (<0.1-0.3); TOTAL BILIRUBIN 0.4 mg/dL (<0.1-1.0); TOTAL PROTEIN 6.3 g/dL (6.4-8.2)
[2020-08-25 08:00] VITALS: BP 179/110
[2020-08-25 12:16] VITALS: BP 184/112
--- NOTE | 2020-08-25 13:18 | NUR ---
Cardiology following for possible ICD placement. Anticipate dc to home tomorrow.
[2020-08-25] MEDS ORDERED: IPRAT-ALBUT 0.5-3 ML INH (13:32)
[2020-08-25] MEDS ORDERED: ENOXAPARIN100 MG/11 SUBQ (13:33)
[2020-08-25] MEDS ORDERED: EFFIENT10 MG PO (13:34)
[2020-08-25] MEDS ORDERED: NITROGLYCERIN0.4 MG SUBLING (13:36)
[2020-08-25] MEDS ORDERED: METOPROLOL SUCC25 M1 PO (13:37)
[2020-08-25] MEDS ORDERED: LISINOPRIL20 MG PO (13:38)
[2020-08-25] MEDS ORDERED: BAYER CHEWABLE81 MG PO (13:39)
[2020-08-25] MEDS ORDERED: FOLIC ACID1 MG PO (13:40)
[2020-08-25] MEDS ORDERED: VITAMIN B-1100 M1 PO (13:41)
[2020-08-25] MEDS ORDERED: PRENATAL PO (13:42)
[2020-08-25 13:43] VITALS: BP 155/84
[2020-08-25] MEDS ORDERED: ACETAMINOPHEN325 M1 PO (13:43)
[2020-08-25] MEDS ORDERED: ONDANSETRON HCL4 M2 PO (13:44)
[2020-08-25] MEDS ORDERED: COLACE 100 MG100 MG PO (13:49)
[2020-08-25] MEDS ORDERED: AUGMENTIN 500-1 EACH PO (13:52)
[2020-08-25 14:08] VITALS: BP 164/101
[2020-08-25 14:20] VITALS: BP 164/101
--- NOTE | 2020-08-25 15:10 | NUR ---
A&OX4, VS CHARTED, SR W/PVCS ON TELE, ROOM AIR, UP AD SERGIO, HOURLY ROUNDING PERFORMED, POSSESSIONS AND CALL LIGHT WITHIN REACH. PATIENT DEMANDING TO LEAVE, DR. WELSH SPOKE WITH PATIENT AND TOLD PATIENT HE COULD LEAVE IF HE CAME BACK NEXT MORNING FOR ICD PLACEMENT. SYDNEY SCHEDULED ICD PLACEMENT FOR 0800 ON 08/26. DISCHARGE ORDERS GIVEN, MEDS CALLED IN TO PHARMACY- CARE NOTES GIVEN. QUESTIONS ANSWERED, TELE MONITOR AND IV REMOVED WITHOUT COMPLICATION. PATIENT TAKEN IN WHEELCHAIR BY NURSING STAFF TO FRONT DOOR, PICKED UP BY SPOUSE IN FAMILY CAR
== END 2020-08-25 14:58 | disposition home or self-care (01) | DRG 853 ==
LOC: M.ERS 10:33 → M.CL 10:33 → M.TBA-CV 12:29 → M.ICU 12:29 → M.2W 12:29 → M.ICU 12:34 → M.2W 08-22 23:37
PROVIDERS: Emergency Medicine Emergency Medical Services; Family Medicine; Internal Medicine; Internal Medicine Cardiovascular Disease; ADMIT Internal Medicine; ATTEND Internal Medicine
PROC: 5A1945Z Respiratory Ventilation, 24-96 Consecutive Hours (ICD-10-PCS; principal; 2020-08-19)
PROC: 02HV33Z Insertion of Infusion Device into Superior Vena Cava, Percutaneous Approach (ICD-10-PCS; principal; 2020-08-19)
PROC: B2111ZZ Fluoroscopy of Multiple Coronary Arteries using Low Osmolar Contrast (ICD-10-PCS; principal; 2020-08-19)
PROC: 5A12012 Performance of Cardiac Output, Single, Manual (ICD-10-PCS; principal; 2020-08-19)
PROC: 4A023N7 Measurement of Cardiac Sampling and Pressure, Left Heart, Percutaneous Approach (ICD-10-PCS; principal; 2020-08-19)
PROC: B548ZZA Ultrasonography of Superior Vena Cava, Guidance (ICD-10-PCS; principal; 2020-08-19)
PROC: 0BH17EZ Insertion of Endotracheal Airway into Trachea, Via Natural or Artificial Opening (ICD-10-PCS; principal; 2020-08-19)
PROC: 027137Z Dilation of Coronary Artery, Two Arteries with Four or More Drug-eluting Intraluminal Devices, Percutaneous Approach (ICD-10-PCS; principal; 2020-08-19)
DX: A41.9 Sepsis, unspecified organism (principal); G93.41 Metabolic encephalopathy; J69.0 Pneumonitis due to inhalation of food and vomit; J96.01 Acute respiratory failure with hypoxia; I46.9 Cardiac arrest, cause unspecified; I49.01 Ventricular fibrillation; I21.09 ST elevation (STEMI) myocardial infarction involving other coronary artery of anterior wall; N17.9 Acute kidney failure, unspecified; I25.10 Atherosclerotic heart disease of native coronary artery without angina pectoris; E78.5 Hyperlipidemia, unspecified; I10 Essential (primary) hypertension; I25.5 Ischemic cardiomyopathy; Z95.5 Presence of coronary angioplasty implant and graft; Z79.899 Other long term (current) drug therapy

== ENCOUNTER 2020-08-26 07:46 | Observation (INO) | payer OTHER ==
[~2020-08-26] VITALS: Ht 177.8 cm; Wt 103.4 kg
[2020-08-26] VITALS (36 sets, daily range): BP systolic 61–171; BP diastolic 26–114
--- NOTE | ~2020-08-26 | D ---
[address] [address] DISCHARGE SUMMARY Name: ALFRED BENSON Room: [address] Jessa MPatt#: [id number] Admission: 08/26/20 Attend Phys: Chano Coello MD Discharge: 08/27/20 Date of : 65 Report #: [id number] THIS REPORT FOR: cc: FAM - No family physician/PCP FAM - No family physician/PCP ~ Chano Coello MD [facility] DATE OF SERVICE: 08/27/2020 DISCHARGE DIAGNOSES: 1. History of ventricular fibrillation, cardiac arrest. 2. Coronary artery disease with recent percutaneous coronary intervention. 3. Hypertension. 4. Dyslipidemia. 5. Tobacco use. 6. Recent upper extremity right deep venous thrombosis, on anticoagulation. PROCEDURES DURING THE HOSPITALIZATION: 1. Elective insertion of an ICD for secondary prevention. 2. Emergent pericardiocentesis. HOSPITAL COURSE: The patient was brought into the hospital on the morning of 08/26/2020, for elective placement of an ICD for secondary prevention. The procedure was carried out without apparent complication. However, post-procedure, the patient became quite hypotensive. Emergent echocardiogram showed collection of a moderate sized pericardial effusion with early tamponade. The patient was brought back to the catheterization lab and an emergent pericardiocentesis performed with removal of 450 mL of blood from around the pericardium. The patient's vital signs promptly stabilized and the remainder of his hospitalization was unremarkable. A pigtail catheter was left in place overnight. The following day. There was no residual fluid. The pigtail catheter was removed uneventfully. The patient is being discharged to home uneventfully. DISCHARGE MEDICATIONS: Will include aspirin 81 mg daily, Effient 10 mg daily, Lovenox 1 mg/kg b.i.d. for 10 days, hydrochlorothiazide 25 mg daily, lisinopril 20 mg daily, metoprolol succinate 50 mg daily, potassium chloride 10 mEq daily, Colace 100 mg b.i.d. DISPOSITION: The patient is to follow up in the Cardiology office in 1 week for a site check of his ICD insertion site. He will follow up in the next 1-2 [place] [address] DISCHARGE SUMMARY Name: ALFRED BENSON Mitzy Room: [address] M.R.#: [id number] Admission: 08/26/20 Attend Phys: Chano Coello MD Discharge: 08/27/20 Date of : 65 Report #: [id number] months for interrogation of his device and routine followup for his cardiac issues. By: 1737 1759Micbridget Coello MD, [facility] /nt
--- NOTE | ~2020-08-26 | CARD ---
[address] [address] CARDIAC CATH REPORT Name: ALFRED BENSON Room: [address] M.R.#: [id number] Admission: 08/26/20 Attend Phys: Chano Coello MD Discharge: 08/27/20 Date of : 65 Report #: [id number] THIS REPORT FOR: cc: FAM - No family physician/PCP FAM - No family physician/PCP ~ Chano Coello MD [facility] DATE OF SERVICE: 08/26/2020 PROCEDURE: Pericardiocentesis. INDICATION: Tamponade. DESCRIPTION OF PROCEDURE: The patient noted to have a moderate-sized pericardial effusion after ICD placement consistent with hemopericardium. There is evidence on echocardiogram of early tamponade. The patient was brought urgently to the cardiac catheterization lab. The area of the chest was prepped and draped in sterile fashion. Local anesthesia was achieved with 1% lidocaine. Next, after a needle was inserted into the pericardium with amelia blood return, a safety J guidewire was advanced and fluoroscopy indicated a pericardial placement. Next, a pigtail catheter was advanced over the safety J guidewire. The guidewire was removed and 450 mL of blood removed. The patient's vital signs promptly returns to normal. The pigtail catheter was sutured in place and covered with a bandage. The patient was transferred to the Intensive Care Unit in stable condition. IMPRESSION: 1. Early tamponade with hemopericardium. 2. Successful pericardiocentesis with removal of 450 mL of blood. By: 1747 23Chano Coello MD, FACC /nt
[~2020-08-26 07:46] MED LIST: ACETAMINOPHEN325 M1 PO; AMLODIPINE BESY10 MG PO; AUGMENTIN 500-1 EACH PO; BAYER CHEWABLE81 MG PO; COLACE 100 MG100 MG PO; COREG PO; EFFIENT10 MG PO; ENOXAPARIN100 MG/11 SUBQ; FOLIC ACID1 MG PO; HYDROCHLOROTHIA25 M1 PO; IPRAT-ALBUT 0.5-3 ML INH; KLOR-CON 1010 MEQ PO; LISINOPRIL20 MG PO; METOPROLOL SUCC25 M1 PO; NITROGLYCERIN0.4 MG SUBLING; ONDANSETRON HCL4 M2 PO; PRENATAL PO; VITAMIN B-1100 M1 PO
[2020-08-26 08:24] LABS: CALCIUM 8.9 mg/dL (8.5-10.1); CREATININE 1.3 mg/dL (0.6-1.3); POTASSIUM 3.8 mmol/L (3.5-5.1)
[2020-08-26 08:28] LABS: APTT 24.6 Seconds (25.0-31.3); PROTIME 10.3 Seconds (9.20-11.50)
[2020-08-26 08:29] LABS: TOTAL BILIRUBIN 0.4 mg/dL (<0.1-1.0); TOTAL PROTEIN 7.1 g/dL (6.4-8.2)
[2020-08-26 08:30] LABS: ABSOLUTE BASOPHILS 0.1 thou/uL (0.0-0.2); ABSOLUTE EOSINOPHILS 0.6 thou/uL (0.0-0.7); ABSOLUTE LYMPHOCYTES 1.3 thou/uL (0.8-5.3); ABSOLUTE MONOCYTES 1.2 thou/uL (0.0-1.2); ABSOLUTE NEUTROPHILS 6.2 thou/uL (1.6-8.1); BASOPHILS 0.7 %; EOSINOPHILS 6.1 %; HEMATOCRIT 40.8 % (42.0-52.0); HEMOGLOBIN 14.2 gm/dL (14.0-18.0); LYMPHOCYTES 13.5 %; MCHC 34.7 g/dL (28.0-37.0); MCV 86.4 fL (80.0-100.0); MONOCYTES 12.8 %; MPV 6.7 fl. (7.2-11.1); NUCLEATED RBCS 0 /100WBC; PLATELET COUNT* 211 thou/uL (150-400); POLYS 66.9 %; RBC 4.72 mil/uL (4.50-6.00); RDW-CV 13.1 % (10.5-14.5); WBC 9.3 thou/uL (4.0-11.0)
--- NOTE | 2020-08-26 10:23 | EKG ---
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1965 Requested By: Chano Coello Order Number: [id number] Travon MD: Ricci Sheffield Measurements Intervals [place] Rate: 72 P: 20 UT: 168 QRS: -15 QRSD: 100 T: -7 QT: 398 QTc: 436 Interpretive Statements Sinus rhythm Inferior infarct, old Compared to ECG 08/20/2020 03:19:54 Prolonged QT interval no longer present Electronically Signed On 08-26-2020 10:22:49 CDT by Ricci Sheffield [email or web address] <ELECTRONICALLY SIGNED> By: Ricci Sheffield MD, [facility] 08/26/20 1022 1 1 Ricci Sheffield MD, [facility] /EPI
[2020-08-26 13:03] LABS: HEMATOCRIT 36.7 % (42.0-52.0); HEMOGLOBIN 12.5 gm/dL (14.0-18.0); MCH 30.1 pg (26.0-34.0); MCV 88.6 fL (80.0-100.0); MPV 6.8 fl. (7.2-11.1); RBC 4.14 mil/uL (4.50-6.00); RDW-CV 13.3 % (10.5-14.5); WBC 8.1 thou/uL (4.0-11.0)
--- NOTE | 2020-08-26 13:59 | EKG ---
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1965 Requested By: Chano Coello Order Number: [id number] Reading MD: Ricci Sheffield Measurements Intervals [place] Rate: 79 P: 29 UT: 140 QRS: 13 QRSD: 92 T: -26 QT: 415 QTc: 476 Interpretive Statements Sinus rhythm Multiform ventricular premature complexes Nonspecific T abnormalities, inferior leads Borderline prolonged QT interval Compared to ECG 08/26/2020 08:22:24 Ventricular premature complex(es) now present Electronically Signed On 08-26-2020 13:58:57 CDT by Ricci Sheffield [email or web address] <ELECTRONICALLY SIGNED> By: Ricci Sheffield MD, FACC 08/26/20 1358 1100 1100 Ricci Sheffield MD, FAC /EPI
--- NOTE | 2020-08-26 17:39 | 2DMMODE ---
[place] [address] 2 D/M-MODE ECHOCARDIOGRAM Name: ALFRED BENSON Room: [address] IN .R.#: [id number] Admission: 08/26/20 Attend Phys: Chano Coello, Discharge: Date of : 65 Date of Service: 08/26/20 1739 Report #: [id number] THIS REPORT FOR: cc: FAM - No family physician/PCP FAM - No family physician/PCP Chano Coello MD [facility] ~ APPROVED REPORT Study performed: 08/26/2020 11:20:01 EXAM: Comprehensive 2D, Doppler, and color-flow Echocardiogram Patient Location: Out-Patient Status: routine BSA: 2.19 HR: 814 bpm BP: 84/45 mmHg Rhythm: NSR Other Information Study Quality: Good Indications Pericardial Effusion Chest Pain 2D Dimensions IVSd: 20.31 (7-11mm) LVOT Diam: 21.77 (18-24mm) LVDd: 45.68 mm PWd: 17.49 (7-11mm) Ascending Ao: 35.01 (22-36mm) LVDs: 34.11 (25-40mm) Aortic Root: 36.87 mm Volumes Left Atrial Volume (Systole) LA ESV Index: 27.90 mL/m2 Aortic Valve AoV Peak Adiel.: 1.55 m/s AO Peak Gr.: 9.64 mmHg LVOT Max P.83 mmHg AO Mean Gr.: 5.08 mmHg LVOT Mean P.54 mmHg LVOT Max V: 0.84 m/s AO V2 VTI: 18.86 cm LVOT Mean V: 0.58 m/s RICK (VTI): 2.28 cm2 LVOT V1 VTI: 11.55 [place] [address] 2 D/M-MODE ECHOCARDIOGRAM Name: ALFRED BENSON Room: [address] IN ..#: [id number] Admission: 08/26/20 Attend Phys: Chano Coello, Discharge: Date of : 65 Date of Service: 08/26/20 1739 Report #: [id number] Mitral Valve E/A Ratio: 1.36 MV Decel. Time: 250.70 ms MV E Max Adiel.: 0.55 m/s MV PHT: 72.70 ms MVA (PHT): 3.03 cm2 TDI E/Lateral E': 7.86 E/Medial E': 9.17 Medial E' Adiel.: 0.06 m/s Lateral E' Adile.: 0.07 m/s Pulmonary Valve PV Peak Adiel.: 1.21 m/s PV Peak Gr.: 5.86 mmHg Left Ventricle The left ventricle is normal size. There is normal LV segmental wall motion. Severe concentric left ventricular hypertrophy. Left ventricular systolic function is normal. LVEF is 50-55%. Transmitral Doppler flow pattern suggests impaired LV relaxation. Right Ventricle The right ventricle is normal size. The right ventricular systolic function is normal. Atria The left atrium size is normal. The right atrium size is normal. Aortic Valve The aortic valve is normal in structure. Trace aortic regurgitation. There is no aortic valvular stenosis. Mitral Valve The mitral valve is normal in structure. There is no mitral valve regurgitation noted. No evidence of mitral valve stenosis. Tricuspid Valve The tricuspid valve is normal in structure. Unable to assess PA pressure. Trace tricuspid regurgitation. Pulmonic Valve The pulmonary valve is normal in structure. There is no pulmonic [place] [address] 2 D/M-MODE ECHOCARDIOGRAM Name: BENSONALFRED Room: [address] IN [facility]#: [id number] Admission: 08/26/20 Attend Phys: Chano Coello, Discharge: Date of : 65 Date of Service: 08/26/20 1739 Report #: [id number] Great Vessels The aortic root is normal in size. IVC is normal in size and collapses >50% with inspiration. Pericardium Moderate circumferential pericardial effusion. The diastolic compression of the right ventricle is suggestive of cardiac tamponade. <Conclusion> The left ventricle is normal size. Left ventricular systolic function is normal. LVEF is 50-55%. Transmitral Doppler flow pattern suggests impaired LV relaxation. Trace aortic regurgitation. Moderate circumferential pericardial effusion. The diastolic compression of the right ventricle is suggestive of cardiac tamponade. <ELECTRONICALLY SIGNED> By: Chano Coello MD, FACC 08/26/20 1739 1739 1739 Chano Coello MD, FACC /INF
--- NOTE | 2020-08-26 19:06 | NUR ---
PT RECEIVED FROM CERTIFIED PUBLIC ACCOUNTANT AT 1345, A&O x4. VSS. NS CONTD AT 100 MLS/HR FROM CERTIFIED PUBLIC ACCOUNTANT. EDUCATED REGARDING LT UPPER LIMB MOBILITY WITH AICD. INCISION SITE C/D/I. TOLERATING DIET. VOIDED PER URINAL. C/O DULL CHEST PAIN, PAIN RELIEF OBTAINED BY HYDROCODONE. ADMISSION PROCESS COMPLETED. UPDATED.
[2020-08-27] VITALS (20 sets, daily range): BP systolic 157–195; BP diastolic 95–119
[2020-08-27 04:18] LABS: HEMATOCRIT 35.4 % (42.0-52.0); HEMOGLOBIN 12.1 gm/dL (14.0-18.0); MCHC 34.2 g/dL (28.0-37.0); MCV 87.7 fL (80.0-100.0); MPV 6.6 fl. (7.2-11.1); RBC 4.03 mil/uL (4.50-6.00); RDW-CV 13.3 % (10.5-14.5); WBC 10.1 thou/uL (4.0-11.0)
--- NOTE | 2020-08-27 06:59 | NUR ---
ASSUMED PATIENT CARE AT 1900. ASSESSMENTS COMPLETED CHARTED. CARDIAC MONITORING IN PLACE. HOURLY ROUNDING IN PLACE FOR PATIENT SAFETY. PATIENT SURGICAL DRESSING CLEAN, DRY, AND INTACT. FALL PRECAUTIONS IN PLACE FOR PATIENT SAFETY. BED LOCKED AND IN LOWEST POSITION. CLWR.
--- NOTE | 2020-08-27 12:25 | NUR ---
PT.SITTING ON SIDE OF BED. HE SAID HE HAD JUST HAD PAIN MEDICATION. LIVES WITH HIS AND EXTENDED FAMILY LIVE WITH THEM. ANXIOUS TO GO HOME TODAY. HE SAID HE IS JUST A LITTLE WEAK BUT WILL BE FINE. HAS ALOT OF PEOPLE TO HELP HIM. NO USE OF DME OR HX OF HH. SPOKE ABOUT NEEDING TO GET A PCP. HE WILL FOLLOW UP WITH BUT ENCOURAGED HM TO ALSO GET A PCP. HE WOULD LIKE TO FIND ONE [place] TO [place]. EXPLAINED HE OR HIS CAN CALL CUSTOMER SERVICE ON BACK OF CARD OR GO TO WEB SITE AND FIND LIST OF PROVIDERS. HE SAID HE WILL FOR SURE DO THIS. HE THANKED EVERYONE WHO HAS TAKEN CARE OF HIM WHILE HERE IN THE HOSPITAL.
--- NOTE | 2020-08-27 12:59 | 2DMMODE ---
[place] [address] 2 D/M-MODE ECHOCARDIOGRAM Name: ALFRED BENSON Room: [address] MPatt#: [id number] Admission: 08/26/20 Attend Phys: Chano Coello, Discharge: Date of : 65 Date of Service: 08/27/20 1259 Report #: [id number] THIS REPORT FOR: cc: FAM - No family physician/PCP FAM - No family physician/PCP Ricci Sheffield MD [facility] ~ APPROVED REPORT Study performed: 08/27/2020 09:49:56 EXAM: Limited 2D Echocardiogram Patient Location: In-Patient Room #: 001 Status: routine BSA: 2.19 HR: 76 bpm BP: 194/104 mmHg Rhythm: NSR Indications Pericardial Effusion Left Ventricle The left ventricle is normal size. There is normal LV segmental wall motion. Mild concentric left ventricular hypertrophy. Left ventricular systolic function is borderline. LVEF is 50-55%. Right Ventricle The right ventricle is normal size. The right ventricular systolic function is normal. Atria The left atrium size is normal. The right atrium size is normal. Aortic Valve The aortic valve is normal in structure. Mitral Valve The mitral valve is normal in structure. Tricuspid Valve The tricuspid valve is normal in structure. Pulmonic Valve [address] [address] 2 D/M-MODE ECHOCARDIOGRAM Name: ALFRED BENSON Room: [address] [place] MPrestonRPreston#: [id number] Admission: 08/26/20 Attend Phys: Chano Coello, Discharge: Date of : 65 Date of Service: 08/27/20 1259 Report #: [id number] The pulmonary valve is normal in structure. Great Vessels The aortic root is normal in size. Pericardium There is no pericardial effusion. <Conclusion> Left ventricular systolic function is borderline. LVEF is 50-55%. There is normal LV segmental wall motion. There is no pericardial effusion. <ELECTRONICALLY SIGNED> By: Ricci Sheffield MD, FACC 08/27/20 1259 58 Ricci Sheffield MD, FACC /INF
--- NOTE | 2020-08-27 17:41 | NUR ---
DISCHARGE EDUCATION GIVEN WITH PT'S AT THE BEDSIDE. IV CANNULA DC'D. PT LEFT THE UNIT AT 1715.
--- NOTE | 2020-08-27 17:48 | CARD ---
[address] [address] CARDIAC CATH REPORT Name: ALFRED BENSON Room: [address] M.R.#: [id number] Admission: 08/26/20 Attend Phys: Chnao Coello MD Discharge: Date of : 65 Report #: [id number] THIS REPORT FOR: cc: FAM - No family physician/PCP FAM - No family physician/PCP ~ Chano Coello MD [facility] APPROVED REPORT Study performed: 08/26/2020 08:54:29 Patient Status: Out-Patient Room #: Event Personnel: Chano Coello Weatherization Coordinator, Rain Cristina RN RN, Anam Miner RTR Scrub, Kim Vanegas RTR Monitor Exam: Insertion of Single Chamber Permanent ICD The patient is a 55 year-old male with a history of . Conscious Sedation Start time: 09:29 End Time: 10:09 Fentanyl 75 mcg Versed 3 mg Implanted Devices: ICD Generator- Acticor 7 VR-T DX, model #945341, serial #[id number]. ICD Lead- Plexa ProMRI S DX 65/15, model #578343, serial #[id number]. Procedure The patient underwent informed consent. We discussed the details of the procedure including the risks, which include, but not limited to bleeding, infection, vascular damage, cardiac perforation, and pneumothorax. He understood these risks and was willing to proceed. As such, he was brought to the EP/Cardiac Catheterization laboratory in a fasting and sedated state and prepped and draped in a sterile fashion, received IV antibiotics prior to initiation of the procedure and a venogram was performed showing patency of the left axillary vein. The patient underwent conscious sedation, with no related complications. The patient was brought to the EP/Cardiac Catheterization laboratory and the left chest and shoulder were prepped and draped in a sterile manner. During this case, Fluoroscopy and Omnipaque 20 ml were used for imaging. IV conscious sedation was used throughout [place] [address] CARDIAC CATH REPORT Name: ALFRED BENSON Mitzy Room: [address]#: [id number] Admission: 08/26/20 Attend Phys: Chano Coello MD Discharge: Date of : 65 Report #: [id number] monitoring and was performed in the presence of a registered nurse who was an independent trained observer other than the physician performing the procedure. The left subclavian region was infiltrated with 2% Lidocaine with Epinephrine subcutaneous anesthesia. A transverse incision was made in the left upper chest cavity. The subcutaneous pocket was formed via blunt dissection. Percutaneous venous access was achieved and an introducer sheath was inserted into the left Subclavian vein. Utilizing fluoroscopic guidance, the ventricular lead wire was advanced over the wires and positioned in the right atria and right ventricle respectively. Capturing and sensing thresholds were verified. Electrode Parameters P Wave: 5.0 mV R Wave: 20.5 mV Ventricular Threshold: 0.9 V at 0.40 ms Ventricular Resistance: 745 ohms Single Chamber The atrial and ventricular leads were then secured using 0 silk sutures. The subcutaneous pocket was irrigated with vancomycin antibiotic solution.The ventricular lead was attached to the appropriate receptacle on the pulse generator and set screws firmly tightened to insure adequate contact and stability. The lead and pulse generator were placed into the subcutaneous pocket. Sharp and sponge counts were confirmed to be correct. At this time the pocket was closed subcutaneously with a 2.0 Vicryl and the skin was closed with a 4.0 Vicryl. The operative site was dressed in sterile fashion with benzoin spray, Steri strips, Telfa, and Tegaderm and the patient was transferred to the floor in stable condition. Complications The patient tolerated the procedure well and there were no complications associated with the procedure. Findings Specimens Removed: No Estimated Blood Loss: 5 ml Conclusion 1. History of cardiac arrest with ventricular fibrillation. 2. Successful placement of single-ch[place] [address] CARDIAC CATH REPORT Name: ALFRED BENSON Room: [address] M.R.#: [id number] Admission: 08/26/20 Attend Phys: Chano Coello MD Discharge: Date of : 65 Report #: [id number] prevention. Recommendations 1. Follow-up site check in 1 week. 2. Follow-up device interrogation 1 to 2 months. <ELECTRONICALLY SIGNED> By: Chano Coello MD, FACC 08/27/201747 47 47Michaedom Coello MD, FACC /INF
== END 2020-08-27 17:15 | disposition home or self-care (01) ==
LOC: M.CL 07:46 → M.ICU 13:31 → M.TBA-CV 13:31 → M.ICU 13:45
PROVIDERS: ADMIT Internal Medicine Cardiovascular Disease; ATTEND Internal Medicine Cardiovascular Disease
DX: I25.10 Atherosclerotic heart disease of native coronary artery without angina pectoris (principal); I10 Essential (primary) hypertension; E78.5 Hyperlipidemia, unspecified; I82.621 Acute embolism and thrombosis of deep veins of right upper extremity; I49.01 Ventricular fibrillation; I25.2 Old myocardial infarction; I31.3 Pericardial effusion (noninflammatory); Z79.01 Long term (current) use of anticoagulants; Z72.0 Tobacco use

== ENCOUNTER 2020-08-29 11:06 | Emergency (ER) | payer OTHER ==
[~2020-08-29] VITALS: Ht 177.8 cm; Wt 103.0 kg
[2020-08-29] MEDS ORDERED: NORCO5 PO (14:20)
[2020-08-29 14:34] VITALS: BP 158/98
--- NOTE | 2020-08-30 17:34 | EKG ---
[place] [address] ELECTROCARDIOGRAM REPORT Name: ALFRED BENSON Room: [facility]#: [id number] Admission: 08/29/20 Attend Phys: Discharge: 08/29/20 Date of : 65 Date of Service: 08/29/20 1118 Report #: [id number] THIS REPORT FOR: //name// [facility] ED Test Date: 2020-08-29 Test Time: 11:18:32 Pat Name: ALFRED BENSON Department: Room: Gender: Cad Technician: : 1965 Requested By: Robb Lynn Order Number: [id number] Reading MD: Chano Coello Measurements Intervals [place] Rate: 68 P: 17 MO: 161 QRS: -21 QRSD: 98 T: -26 QT: 396 QTc: 422 Interpretive Statements Sinus rhythm Ventricular premature complex Inferior infarct, old, possible Compared to ECG 08/26/2020 11:00:55 Possible myocardial infarct finding now present T-wave abnormality no longer present Electronically Signed On 08-30-2020 17:34:08 CDT by Chano Coello [email or web address] <ELECTRONICALLY SIGNED> By: Chano Coello MD, FAC 08/30/20 1734 1118 1118 Chano Coello MD, [facility] /EPI
== END 2020-08-29 14:36 | disposition home or self-care (01) ==
LOC: M.ERS 11:06
DX: I97.618 Postprocedural hemorrhage of a circulatory system organ or structure following other circulatory system procedure (principal); I10 Essential (primary) hypertension; F17.210 Nicotine dependence, cigarettes, uncomplicated; Z88.0 Allergy status to penicillin; Z95.5 Presence of coronary angioplasty implant and graft; Z90.49 Acquired absence of other specified parts of digestive tract

== ENCOUNTER 2020-10-21 23:14 | Inpatient (IN) | payer OTHER ==
[~2020-10-21] VITALS: Ht 177.8 cm; Wt 100.7 kg
[~2020-10-21 23:14] MED LIST changes: +NORCO5 PO
[2020-10-21 23:28] VITALS: BP 167/98
[2020-10-21] MEDS ORDERED: LIPITOR 40 MG T40 M1 PO (23:36)
[2020-10-21] MEDS ORDERED: TRIAMTERENE/HCT1 CA1 PO (23:37)
[2020-10-21] MEDS ORDERED: CARVEDILOL25 MG PO (23:37)
[2020-10-21] MEDS ORDERED: ASA81BEC PO (23:38)
[2020-10-21 23:51] LABS: ABSOLUTE BASOPHILS 0.1 thou/uL (0.0-0.2); ABSOLUTE EOSINOPHILS 0.3 thou/uL (0.0-0.7); ABSOLUTE LYMPHOCYTES 2.2 thou/uL (0.8-5.3); ABSOLUTE MONOCYTES 0.7 thou/uL (0.0-1.2); ABSOLUTE NEUTROPHILS 5.5 thou/uL (1.6-8.1); BASOPHILS 0.8 %; EOSINOPHILS 3.8 %; HEMATOCRIT 37.9 % (42.0-52.0); HEMOGLOBIN 13.4 gm/dL (14.0-18.0); LYMPHOCYTES 24.6 %; MCH 29.8 pg (26.0-34.0); MCHC 35.2 g/dL (28.0-37.0); MCV 84.5 fL (80.0-100.0); MONOCYTES 7.7 %; MPV 6.2 fl. (7.2-11.1); NUCLEATED RBCS 0 /100WBC; PLATELET COUNT* 236 thou/uL (150-400); POLYS 63.1 %; RBC 4.49 mil/uL (4.50-6.00); RDW-CV 13.3 % (10.5-14.5); WBC 8.8 thou/uL (4.0-11.0)
[2020-10-22] VITALS (7 sets, daily range): BP systolic 131–181; BP diastolic 79–111
[2020-10-22 00:01] LABS: CALCIUM 9.3 mg/dL (8.5-10.1); CREATININE 1.3 mg/dL (0.6-1.3); POTASSIUM 3.1 mmol/L (3.5-5.1); PROTIME 10.7 Seconds (9.20-11.50)
[2020-10-22 00:12] LABS: ALBUMIN 3.6 g/dL (3.4-5.0); MAGNESIUM 1.8 mg/dL (1.8-2.4); TOTAL BILIRUBIN 0.4 mg/dL (<0.1-1.0)
--- NOTE | 2020-10-22 05:13 | NUR ---
RECEIVED PT FROM ED AT APPROX 0215. PT IS AWAKE AND ORIENTED X4. PT IS NOT IN DISTRESS. PT IS TRACING SR ON THE DOOR FRAMER. PT DENIES CHEST PAIN OF THIS TIME. ADMISSION ASSESSMENTS DONE AND CHARTED. PT IS ORIENTED ON ROOM SET UP AND ON THE USE OF CALL LIGHT. SEIZURE PRECAUTIONS IN PLACE. CALL IGHT WITHIN REACH. HIGH FALL PRECAUTIONS IN PLACE.
[2020-10-22 10:11] LABS: CALCIUM 9.3 mg/dL (8.5-10.1); CREATININE 1.1 mg/dL (0.6-1.3); POTASSIUM 3.1 mmol/L (3.5-5.1)
--- NOTE | 2020-10-22 13:44 | NUR ---
Pt is A&O. Resides at home with . Independent. No DME. Hx of HH. Hx of outpt therapy. Anticipate dc to home tomorrow. Cards working up. Pt does not qualify for , does not currently have a PCP. No needs anticipated.
[2020-10-22 13:51] LABS: AMP/METHAMP Negative (Negative); BARBITURATES Negative (Negative); BENZODIAZEPINES Negative (Negative); COCAINE Negative (Negative); METHADONE Negative (Negative); OPIATES Negative (Negative); PCP Negative (Negative); THC Negative (Negative)
--- NOTE | 2020-10-22 16:45 | EKG ---
[place] [address] ELECTROCARDIOGRAM REPORT Name: ALFRED BENSON [address] [id number] Admission: 10/22/20 Attend Phys: Prabhjot Mcguire Discharge: Date of : 65 Date of Service: 10/21/20 2333 Report #: [id number] THIS REPORT FOR: //name// [facility] ED Test Date: 2020-10-21 Test Time: 23:33:48 Pat Name: ALFRED BENSON Department: Room: [facility] Gender: M Fitness Floor Attendant: [place] : 1965 Requested By: Raissa Dunn Order Number: [id number] MD: Peter Scott Measurements Intervals [place] Rate: 91 P: 18 [place]: 162 QRS: -30 QRSD: 99 T: 20 QT: 375 QTc: 462 Interpretive Statements Sinus rhythm Abnormal R-wave progression, late transition Left ventricular hypertrophy Inferior infarct, old Compared to ECG 08/29/2020 11:18:32 Left ventricular hypertrophy now present Ventricular premature complex(es) no longer present Myocardial infarct finding still present Electronically Signed On 10-22-2020 16:45:02 CDT by Peter Scott [email or web address] <ELECTRONICALLY SIGNED> By: Peter Scott MD, [facility] 10/22/20 1645 2333 2333 Peter Scott MD, [facility] /EPI
[2020-10-23] VITALS: BP 170/103
[2020-10-23 04:00] VITALS: BP 171/105
--- NOTE | 2020-10-23 04:06 | NUR ---
PT A&OX4, VSS ON ROOM AIR, IV SALINE LOCKED, PT UP WITH SBA. SEIZURE PRECAUTIONS MAINTAINED. PT SR TO SB ON TELE MONITOR. PAIN MEDICATION REQUESTED FOR BACK OF HEAD PAIN AND ADMINISTERED ORDERED. PT SLEEPING WELL. ASSESSMENTS AND HOURLY ROUNDINGS COMPLETE, WILL CONTINUE TO MONITOR.
[2020-10-23 04:30] LABS: ABSOLUTE EOSINOPHILS 0.3 thou/uL (0.0-0.7); ABSOLUTE LYMPHOCYTES 2.8 thou/uL (0.8-5.3); ABSOLUTE MONOCYTES 0.6 thou/uL (0.0-1.2); ABSOLUTE NEUTROPHILS 3.7 thou/uL (1.6-8.1); BASOPHILS 0.6 %; EOSINOPHILS 3.9 %; HEMATOCRIT 38.2 % (42.0-52.0); HEMOGLOBIN 13.4 gm/dL (14.0-18.0); LYMPHOCYTES 38.2 %; MCH 29.6 pg (26.0-34.0); MCV 84.5 fL (80.0-100.0); MONOCYTES 7.6 %; MPV 6.7 fl. (7.2-11.1); NUCLEATED RBCS 0 /100WBC; PLATELET COUNT* 224 thou/uL (150-400); POLYS 49.7 %; RBC 4.52 mil/uL (4.50-6.00); RDW-CV 13.3 % (10.5-14.5); WBC 7.4 thou/uL (4.0-11.0)
[2020-10-23 04:33] LABS: CALCIUM 9.4 mg/dL (8.5-10.1)
[2020-10-23 08:00] VITALS: BP 181/85
[2020-10-23 12:00] VITALS: BP 174/100
--- NOTE | 2020-10-23 14:38 | NUR ---
ASSUMED CARE OF PT AT 0730. PT A&0X4, DENIES ANY PAIN OR SHORTNESS OF BREATH AT THIS TIME. TRACING SR ON THE FIRESTOPPER TECHNICIAN. ON RA SAT UPPER 90'S. PT UP WITH SBA TO BATHROOM. CARDIOLOGY HERE TO SEE PT. ORDERS RECEIVED FOR AMIO LOAD. REFER TO EMAR. PT AT BEDSIDE AND UPDATED ON CURRENT PLAN OF CARE. PT GOAL FOR TODAY IS INCREASE ACTIVITY, REPLACE POTASSIUM PER ELECTROLYTE PROTOCOL AND AMIO LOAD. AM ASSESSMENT CHARTED. MEDICATIONS PER AUG. PT REPOSITIONS SELF. HOURLY ROUNDING OBSERVED. BED IN LOW POSITION. CALL LIGHT WITHIN REACH. WILL CONTINUE PLAN OF CARE.
[2020-10-23 16:00] VITALS: BP 154/90
[2020-10-23 20:00] VITALS: BP 169/105
[2020-10-24 00:13] VITALS: BP 184/114
[2020-10-24 04:14] VITALS: BP 146/86
--- NOTE | 2020-10-24 05:36 | NUR ---
PATIENT SLEPT MOST OF THE NIGHT. PATIENT WAS GIVEN TYLENOL ONCE FOR PAIN. PATIENT IS HOPING TO GO HOME TODAY. WILL CONTINUE TO MONITOR.
[2020-10-24 08:00] VITALS: BP 181/112
[2020-10-24] MEDS ORDERED: TOPROL XL50 MG PO (11:04)
[2020-10-24] MEDS ORDERED: KLOR-CON 1010 MEQ PO (11:09)
[2020-10-24] MEDS ORDERED: PACERONE 200 M200 M1 PO (11:09)
[2020-10-24] MEDS ORDERED: ENTRESTO 24 MG1 EACH PO (11:09)
[2020-10-24 11:27] VITALS: BP 181/112
--- NOTE | 2020-10-24 11:41 | NUR ---
ASSUMED PT CARE AT 0730, PT AOX4 NO C/O PAIN, WORKED W/ CARDS THIS MORNING AND CLEARED FOR DC. SCRIPTS SENT TO PT'S PHARMACY AND IV AND QUALITY IMPROVEMENT SPECIALIST REMOVED. PT DC'D BY W/ NURSING STAFF AND ALL PAPERWORK AND PERSONAL BELONGINGS TO 'S VEHICLE AT APPROX 1135
== END 2020-10-24 11:35 | disposition home or self-care (01) | DRG 308 ==
LOC: M.ERS 23:14 → M.TBA-ER 10-22 01:17 → M.2W 10-22 01:17
PROVIDERS: Emergency Medicine; Internal Medicine; Registered Nurse; ADMIT Internal Medicine; ATTEND Internal Medicine
PROC: 4B02XTZ Measurement of Cardiac Defibrillator, External Approach (ICD-10-PCS; principal; 2020-10-24)
DX: I49.01 Ventricular fibrillation (principal); I50.33 Acute on chronic diastolic (congestive) heart failure; I11.0 Hypertensive heart disease with heart failure; I25.5 Ischemic cardiomyopathy; T67.1XXA Heat syncope, initial encounter; E87.6 Hypokalemia; I25.10 Atherosclerotic heart disease of native coronary artery without angina pectoris; E78.5 Hyperlipidemia, unspecified; F17.200 Nicotine dependence, unspecified, uncomplicated; I42.8 Other cardiomyopathies; X58.XXXA Exposure to other specified factors, initial encounter; Z95.810 Presence of automatic (implantable) cardiac defibrillator; Z95.5 Presence of coronary angioplasty implant and graft; Z90.49 Acquired absence of other specified parts of digestive tract; Z79.899 Other long term (current) drug therapy; Z88.0 Allergy status to penicillin; Y93.89 Activity, other specified; Y92.89 Other specified places as the place of occurrence of the external cause; Y99.8 Other external cause status; I25.2 Old myocardial infarction